=== PATIENT | female | born 1960 | race African-American/Black ===

== ENCOUNTER 2021-06-01 12:59 | Day surgery (SDC) | payer MEDICARE, MEDICAID ==
[2021-06-01] MEDS ORDERED: Lidocaine 1% PF 5 ML VIAL ONE ×2 (13:37)
[2021-06-01 13:47] VITALS: BP 137/97
[2021-06-02] MEDS ORDERED: FLU VACC QS2021-22(6MOS UP)/PF 60 MCG/0.5 ML SYRINGE IM ONE (14:00)
== END 2021-06-01 15:10 | disposition home or self-care (01) ==
LOC: CSHULT 12:59
PROVIDERS: ATTEND Otolaryngology Plastic Surgery within the Head & Neck
DX: E04.1 Nontoxic single thyroid nodule (principal); I10 Essential (primary) hypertension; F32.A Depression, unspecified; E78.5 Hyperlipidemia, unspecified; Z79.899 Other long term (current) drug therapy; Z79.01 Long term (current) use of anticoagulants
CPT/HCPCS: 10005; 88173